=== PATIENT | female | born 1970 | race Caucasian/White ===

== ENCOUNTER 2018-12-13 12:00 | Emergency (ER) | payer OTHER ==
[2018-12-13] MEDS ORDERED: IBUPROFEN 600 MG TAB PO ONE (13:19)
[2018-12-13] MEDS ORDERED: HYDROCODONE/APAP 5/325 TAB ONE (13:28)
== END 2018-12-13 13:00 | disposition home or self-care (01) ==
LOC: CED 12:00
PROC: 2W3QX1Z Immobilization of Right Lower Leg using Splint (ICD-10-PCS; principal; 2018-12-13)
DX: S82.831A Other fracture of upper and lower end of right fibula, initial encounter for closed fracture (principal); W19.XXXA Unspecified fall, initial encounter; Y92.9 Unspecified place or not applicable; Y93.9 Activity, unspecified; Y99.9 Unspecified external cause status
CPT/HCPCS: 73610-PO; 99283-ER